=== PATIENT | female | born 2000 | race Caucasian/White ===

== ENCOUNTER 2018-01-03 21:32 | Emergency (ER) | payer OTHER ==
[~2018-01-03] VITALS: Ht 165.1 cm; Wt 109.1 kg
[2018-01-03] MEDS ORDERED: CIPROFLOXACIN HCL 0.2%/HYDROCORT 1% 10 ML OTIC SUSPENSION AD ONE (22:15)
[2018-01-03 22:52] VITALS: BP 142/92
== END 2018-01-03 22:52 | disposition home or self-care (01) ==
LOC: EMS 21:33
DX: H60.91 Unspecified otitis externa, right ear (principal); Z88.0 Allergy status to penicillin
CPT/HCPCS: 99283